=== PATIENT | male | born 1985 | race Caucasian/White ===

== ENCOUNTER 2023-11-18 16:10 | Inpatient (IN) | payer BC ==
[~2023-11-18] VITALS: Ht 177.8 cm; Wt 149.0 kg
[2023-11-19] MEDS ORDERED: HALOPERIDOL 5 MG TABLET PO PRN (01:00)
[2023-11-19 02:09] VITALS: BP 139/92; PULSE 110; RESP 18; TEMP 97.6; O2SAT 98
[2023-11-19 02:12] VITALS: BP 139/92; PULSE 110; RESP 18; TEMP 97.6; O2SAT 98
[2023-11-19] MEDS: ZOLPIDEM TARTRATE 10 MG TABLET PO PRN (03:11)
[2023-11-19] MEDS: LORazepam 2 MG TABLET PO PRN (03:11)
[2023-11-19 08:34] VITALS: BP 135/74; PULSE 68; RESP 18; TEMP 97.7; O2SAT 97
[2023-11-19] MEDS ORDERED: ACETAMINOPHEN 325 MG TABLET PO PRN (17:30)
[2023-11-19] MEDS ORDERED: HydrOXYzine PAMOATE 50 MG CAPSULE PO PRN (17:30)
[2023-11-19] MEDS ORDERED: MAGNESIUM HYDROXIDE SUSPENSION 30 ML UDCUP PO PRN (17:30)
[2023-11-19] MEDS ORDERED: PROMETHAZINE HCL 25 MG TABLET PO PRN (17:30)
[2023-11-19] MEDS ORDERED: LOPERAMIDE HCL 2 MG CAPSULE PO PRN (17:30)
[2023-11-19] MEDS ORDERED: GuaiFENesin/D-METHORPHAN [SUGAR-FREE] 200-20MG/10 ML SYRUP UDCUP PO PRN (17:30)
[2023-11-19] MEDS ORDERED: TUBERCULIN, PURIFIED PROTEIN DERIVATIVE 5 TU/0.1 ML SYRINGE ID ONE (17:30)
[2023-11-19] MEDS ORDERED: MAG HYDROX/ALUMINUM HYD/SIMETH ES 30 ML SUSPENSION UDCUP PO PRN (17:30)
[2023-11-19 20:12] VITALS: BP 117/68; PULSE 97; RESP 19; TEMP 97.8; O2SAT 97
[2023-11-19] MEDS ORDERED: LORazepam 2 MG/ML VIAL ONE (22:17)
[2023-11-19] MEDS ORDERED: DiphenhydrAMINE HCL 50 MG/ML VIAL ONE (22:17)
[2023-11-19] MEDS ORDERED: HALOPERIDOL LACTATE 5 MG/ML VIAL ONE (22:17)
[2023-11-19] MEDS: LORazepam 2 MG/ML VIAL IM ONE (22:23)
[2023-11-19] MEDS: HALOPERIDOL LACTATE 5 MG/ML VIAL IM ONE (22:24)
[2023-11-19] MEDS: DiphenhydrAMINE HCL 50 MG/ML VIAL IM ONE (22:24)
[2023-11-20] MEDS: MELATONIN 5 MG TABLET PO SCH (00:21)
[2023-11-20] MEDS: LURASIDONE HCL 20 MG TABLET PO SCH (06:32)
[2023-11-20] MEDS: MULTIVITAMINS WITH MINERALS, THERAPEUTIC TABLET PO SCH (08:15)
[2023-11-20] MEDS: BuPROPion HCL XL 150 MG ER TABLET PO SCH (08:16)
[2023-11-20] MEDS: FOLIC ACID 1 MG TABLET PO SCH (08:16)
[2023-11-20] MEDS: THIAMINE 100 MG TABLET PO SCH (08:17)
[2023-11-20 08:26] VITALS: BP 152/82; PULSE 84; RESP 18; TEMP 97.5; O2SAT 97
[2023-11-20 21:15] VITALS: BP 130/81; PULSE 78; RESP 17; TEMP 98; O2SAT 97
[2023-11-21 08:31] LABS: BASOPHILS % (AUTO) 0.4 % (0.0-2.0); EOSINOPHILS % (AUTO) 2.2 % (1.0-6.0); HEMATOCRIT 38.9 % (41-53); HEMOGLOBIN 12.8 g/dL (13.5-17.5); LYMPHOCYTES # (AUTO) 2.2 K/uL (1.0-4.8); LYMPHOCYTES % (AUTO) 21.9 % (22.0-44.0); MEAN CORPUSCULAR HEMOGLOBIN 27.3 pg (26.0-34.0); MEAN CORPUSCULAR HGB CONC 32.9 G/dL (31.0-37.0); MEAN CORPUSCULAR VOLUME 83 fL (80-100); MONOCYTES # (AUTO) 0.8 K/uL (0.1-1.0); MONOCYTES % (AUTO) 8.2 % (2.0-9.0); NEUTROPHILS # (AUTO) 6.7 K/uL (1.8-7.7); NEUTROPHILS % (AUTO) 67.3 % (40.0-70.0); PLATELET COUNT (AUTO) 367 K/uL (150-450); RED BLOOD CELL COUNT(AUTO) 4.68 MIL/uL (4.50-5.90); RED CELL DISTRIBUTION WIDTH 14.1 % (11.5-14.5); WHITE BLOOD COUNT (AUTO) 9.9 K/uL (4.5-11.0)
[2023-11-21 09:04] LABS: ALANINE AMINOTRANSFERASE 68 U/L (12-78); ALBUMIN 3.3 g/dL (3.4-5.0); ALKALINE PHOSPHATASE 97 U/L (46-116); ANION GAP 9 mmol/L (8-16); ASPARTATE AMINOTRANSFERASE 32 U/L (15-37); BILIRUBIN,TOTAL 0.4 mg/dL (0.1-1.0); CALCIUM, TOTAL 8.8 mg/dL (8.8-10.5); CARBON DIOXIDE 27 mmol/L (22-29); CHLORIDE 103 mmol/L (98-107); CHOL/HDL RATIO 3.4 (4.2-7.3); CHOLESTEROL 131 mg/dL (131-200); CREATININE 0.84 mg/dL (0.60-1.30); FREE T4 (FREE THYROXINE) 1.33 ng/dL (0.76-1.46); GLOMERULAR FILTR. RATE CALC > 60 mL/min (>60); GLUCOSE,RANDOM 105 mg/dL (70-110); HDL CHOLESTEROL 39 mg/dL (40-60); LDL CHOL (CALC.) 76 mg/dL (0-130); POTASSIUM 3.8 mmol/L (3.5-5.1); SODIUM SERUM 139 mmol/L (136-145); THYROID STIMULATING HORMONE 2.27 uIU/mL (0.36-3.74); TOTAL PROTEIN, SERUM 7.2 g/dL (6.4-8.2); TRIGLYCERIDES 81 mg/dL (15-150); UREA NITROGEN, BLOOD 14 mg/dL (7-18)
[2023-11-21 09:14] LABS: HEMOGLOBIN A1C 6.2 % (3.8-5.6)
[2023-11-21 11:13] VITALS: BP 142/79; PULSE 92; RESP 18; TEMP 97.7; O2SAT 99
[2023-11-21] MEDS ORDERED: GLUCAGON,HUMAN RECOMBINANT 1 MG VIAL IM PRN (13:45)
[2023-11-21] MEDS ORDERED: MELA5TAB40 PO (15:21)
[2023-11-21] MEDS ORDERED: LURA20TA PO (15:21)
[2023-11-21] MEDS ORDERED: BUPR-514 PO (15:21)
[2023-11-21] MEDS: INSULIN LISPRO 100 UNITS/ML SQ PRN (17:59)
[2023-11-21 19:31] LABS: GLUCOMETER DEV NAME(LOC) BV3N.2; GLUCOSE,POINT OF CARE 176 MG/DL (70-110)
== END 2023-11-21 18:51 | disposition home or self-care (01) | DRG 885 ==
LOC: B3A 11-19 00:24
PROVIDERS: ADMIT Psychiatry & Neurology Psychiatry; ATTEND Psychiatry & Neurology Psychiatry
PROC: GZHZZZZ Group Psychotherapy (ICD-10-PCS; principal; 2023-11-19)
PROC: GZ51ZZZ Individual Psychotherapy, Behavioral (ICD-10-PCS; 2023-11-19)
DX: F32.3 Major depressive disorder, single episode, severe with psychotic features (principal); G93.41 Metabolic encephalopathy; F23 Brief psychotic disorder; E29.1 Testicular hypofunction
CPT/HCPCS: 80053; 80061; 82962; 83036; 84403; 84439; 84443; 85025; 86592; J1200; J1630; J2060

== ENCOUNTER → 2023-11-18 | Emergency (ER) | payer SELFPAY ==
[~2023-11-18] VITALS: Ht 177.8 cm; Wt 136.4 kg
[~2023-11-18] MED LIST: BUPR-514 PO; LURA20TA PO; MELA5TAB40 PO
[2023-11-18 19:48] LABS: BASOPHILS % (AUTO) 0.6 % (0.0-2.0); EOSINOPHILS % (AUTO) 1.2 % (1.0-6.0); HEMATOCRIT 41.4 % (41-53); HEMOGLOBIN 13.4 g/dL (13.5-17.5); LYMPHOCYTES # (AUTO) 2.5 K/uL (1.0-4.8); LYMPHOCYTES % (AUTO) 16.9 % (22.0-44.0); MEAN CORPUSCULAR HEMOGLOBIN 26.8 pg (26.0-34.0); MEAN CORPUSCULAR HGB CONC 32.4 G/dL (31.0-37.0); MEAN CORPUSCULAR VOLUME 83 fL (80-100); MONOCYTES # (AUTO) 1.1 K/uL (0.1-1.0); MONOCYTES % (AUTO) 7.6 % (2.0-9.0); NEUTROPHILS % (AUTO) 73.7 % (40.0-70.0); PLATELET COUNT (AUTO) 414 K/uL (150-450); RED BLOOD CELL COUNT(AUTO) 5.01 MIL/uL (4.50-5.90); WHITE BLOOD COUNT (AUTO) 14.9 K/uL (4.5-11.0)
[2023-11-18 19:52] LABS: ANION GAP 12 mmol/L (8-16); CARBON DIOXIDE 27 mmol/L (22-29); CHLORIDE 101 mmol/L (98-107); CREATININE 0.88 mg/dL (0.60-1.30); GLOMERULAR FILTR. RATE CALC > 60 mL/min (>60); GLUCOSE,RANDOM 115 mg/dL (70-110); POTASSIUM 3.5 mmol/L (3.5-5.1); SODIUM SERUM 140 mmol/L (136-145); UREA NITROGEN, BLOOD 15 mg/dL (7-18)
[2023-11-18 20:04] LABS: ALCOHOL, BLOOD (SERUM) < 3 mg/dL (0-10)
[2023-11-18 21:15] VITALS: TEMP 98
[2023-11-18] MEDS: DiphenhydrAMINE HCL 25 MG CAPSULE PO ONE (21:54)
[2023-11-18] MEDS: LORazepam 2 MG TABLET PO ONE (21:54)
[2023-11-18] MEDS: HALOPERIDOL 5 MG TABLET PO ONE (21:54)
[2023-11-18 22:17] LABS: COVID AG,FIA SOURCE NASAL SWAB
[2023-11-18 22:37] LABS: SARS-COV2 (COVID) ANTIGEN,FIA Negative (Negative)
[2023-11-18 23:05] VITALS: BP 126/78; PULSE 62; RESP 15; O2SAT 98
== END | disposition still patient (30) ==
LOC: EMS 18:23 → CANBEDREQ 23:02
DX: F29 Unspecified psychosis not due to a substance or known physiological condition (principal); Z20.822 Contact with and (suspected) exposure to COVID-19
CPT/HCPCS: 99283; 87426; 80048; 85025; 36415; G0480